=== PATIENT | female | born 1980 | race Two or more races ===

== ENCOUNTER 2019-11-15 23:01 | Emergency (ER) | payer OTHER ==
[~2019-11-15] VITALS: Ht 162.6 cm; Wt 93.0 kg
[2019-11-15] MEDS ORDERED: FORTAMET500 MG (23:49)
[2019-11-15] MEDS ORDERED: VITAMIN D310 MC6 (23:49)
[2019-11-15] MEDS ORDERED: ZIPSOR25 MG (23:50)
[2019-11-16] MEDS ORDERED: INTESTINEX680 M1 PO (03:28)
[2019-11-16] MEDS ORDERED: KETO10TA2 PO (03:28)
[2019-11-16] MEDS ORDERED: CLINDAMYCIN HC300 MG PO (03:28)
== END 2019-11-16 03:31 ==
LOC: ER 23:01
DX: L02.411 Cutaneous abscess of right axilla (principal); L73.2 Hidradenitis suppurativa